=== PATIENT | female | born 1995 | race Caucasian/White ===

== ENCOUNTER 2017-12-09 00:50 | Emergency (ER) | payer MEDICAID ==
[~2017-12-09] VITALS: Ht 177.8 cm; Wt 59.0 kg
[2017-12-09 00:50] VITALS: BP_SYST 120
[2017-12-09 01:34] LABS: BILIRUBIN,URINE NEGATIVE (NEGATIVE); BLOOD, URINE 2+ (NEGATIVE); CLARITY/URINE HAZY (CLEAR); COLOR,URINE YELLOW (YELLOW); GLUCOSE,URINE NEGATIVE (NEGATIVE); KETONES,URINE NEGATIVE (NEGATIVE); LEUKOCYTE ESTERASE ,URINE 3+ (NEGATIVE); NITRITE, URINE POSITIVE (NEGATIVE); PROTEIN URINE TRACE (NEGATIVE); UROBILINOGEN,URINE 0.2 (0.2-1.0)
[2017-12-09] MEDS ORDERED: IBUPROFEN 600 MG TABLET PO ONE (01:45)
[2017-12-09 01:52] LABS: BACTERIA,URINE MANY /HPF (None Seen); MUCUS,URINE 2+ /LPF (None Seen); RBC,URINE 20-50 /HPF (0-3); WBC,URINE 80-100 /HPF (0-3)
[2017-12-09] MEDS ORDERED: LEVOFLOXACIN 500 MG TABLET PO ONE (03:15)
[2017-12-09 03:20] VITALS: BP_SYST 115
== END 2017-12-09 03:20 | disposition home or self-care (01) ==
LOC: SED 00:50
DX: N39.0 Urinary tract infection, site not specified (principal); F17.200 Nicotine dependence, unspecified, uncomplicated; Z86.19 Personal history of other infectious and parasitic diseases; Z88.1 Allergy status to other antibiotic agents; Z88.2 Allergy status to sulfonamides
CPT/HCPCS: 81000-TC; 87086; 87186-TC; 99284